=== PATIENT | male | born 1950 | race Caucasian/White ===

== ENCOUNTER → 2016-12-27 | Outpatient (CLI) | payer OTHER ==
[~2016-12-27] MED LIST: ACET1TAB32 PO; CETI10TA16 PO; CHOL10003 PO; HYDR59LO TP; INSU100I13 SQ; IPRA0.2S5 IH; KETO15CR2 TP; KETO5DRO3 OP; LISI1TAB5 PO; NAPR500T8 PO; OMEP20TA8 PO; PRAM0.255 PO; PROAIR HFA8.5 GM INH; TOLN1POW MC
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
--- NOTE | 2016-12-27 10:32 | KCIC ---
MRI Lumbar Spine without contrast History: Back pain, pain in the right buttock, symptoms for several months Technique: Multiplanar, multi sequential noncontrast MR imaging was performed of the lumbar spine. Contrast: None Comparison: None Findings: Lumbar vertebral body stature and AP alignment are preserved. There is moderate to severe degenerative disc disease at L4-5, degenerative endplate change at this level. There is mild disc desiccation L3-4 and L1-2. Conus terminates at T12-L1. There is no significant marrow edema. L3-L4: There is mild facet degenerative change. There is negligible disc osteophyte complex. Neural foramina and spinal canal are adequate. L4-L5: There is minimal disc osteophyte complex somewhat greater in the left lateral recess. There is mild left lateral recess stenosis. There is mild facet degenerative change. Disc osteophyte complex and facet degenerative change contributes to moderate narrowing of the left neural foramen. Right neural foramen is overall adequate. L5-S1: Spinal canal and neural foramina are adequate. Impression: 1. There is moderate to severe degenerative disc disease L4-5, spondylosis at this level. There is mild left lateral recess stenosis at L4-5, also moderate narrowing of the left L4-5 neural foramen. Electronically signed by: Carter Vogt MD (12/27/2016 10:29 AM) [email or web address]
== END | disposition home or self-care (01) ==
LOC: KCIC MRI 09:11
PROVIDERS: ATTEND Physical Medicine & Rehabilitation
DX: M47.896 Other spondylosis, lumbar region (principal); M51.36 Other intervertebral disc degeneration, lumbar region; M48.06 Spinal stenosis, lumbar region; M25.511 Pain in right shoulder
CPT/HCPCS: 72148